=== PATIENT | male | born 1995 | race Caucasian/White ===

== ENCOUNTER 2020-09-29 09:14 | Outpatient (REF) | payer OTHER, SELFPAY | END 2020-09-29 09:15 | disposition home or self-care (01) | LOC: HO.LAB 09:14 | PROVIDERS: Visit Provider Internal Medicine | DX: Z20.828 Contact with and (suspected) exposure to other viral communicable diseases (principal) | CPT/HCPCS: C9803; U0003 ==

== ENCOUNTER 2020-12-07 13:31 | Emergency (ER) | payer OTHER, SELFPAY ==
--- NOTE | ~2020-12-07 | XR_ITS ---
EXAMINATION: RIGHT FOOT AND ANKLE X-RAY CLINICAL INFORMATION: Pain and swelling COMPARISON: None TECHNIQUE: 3 views of the right foot and 3 views of the right ankle FINDINGS: Right ankle: Bone alignment is normal. No fracture or dislocation is seen. The ankle mortise is normal. There is lateral soft tissue swelling. Right foot: Bone alignment is normal. No acute fracture or dislocation is seen. There is question of old trauma to the proximal phalanx of the fifth toe. Joint spaces are normal. Soft tissues are normal. XR/XR foot RT min 3V IMPRESSION: No acute fracture or dislocation seen.
--- NOTE | ~2020-12-07 | XR_ITS ---
EXAMINATION: RIGHT FOOT AND ANKLE X-RAY CLINICAL INFORMATION: Pain and swelling COMPARISON: None TECHNIQUE: 3 views of the right foot and 3 views of the right ankle FINDINGS: Right ankle: Bone alignment is normal. No fracture or dislocation is seen. The ankle mortise is normal. There is lateral soft tissue swelling. Right foot: Bone alignment is normal. No acute fracture or dislocation is seen. There is question of old trauma to the proximal phalanx of the fifth toe. Joint spaces are normal. Soft tissues are normal. XR/XR ankle RT min 3V IMPRESSION: No acute fracture or dislocation seen.
[2020-12-07 13:41] VITALS: BP 142/40; PULSE 61; RESP 18; TEMP 36.5; O2SAT 99; BMI 27.1
--- NOTE | 2020-12-07 15:46 | ED_ITS ---
HPI - Extremity Injury (Lower) General Chief Complaint: Extremity Injury, Lower Stated Complaint: rt foot inj Time Seen by Provider: 12/07/20 14:44 Source: patient and family (Mother) Mode of arrival: ambulatory Limitations: language barrier (Surinamese-speaking) History of Present Illness HPI Narrative: 25-year-old male presenting with his mother who reports that 2 days ago when the patient was walking on the sidewalk he had a twist injury to the right ankle and since then has been having pain to right ankle lateral aspect and the patient's right toes. Denies head injury or loss of consciousness. Denies any other injuries complaints or concerns at this time. MD complaint: ankle injury, foot injury and other (Near fall) Onset (ago): day(s) (2 days ago worse today) Type of Injury: inversion Place: street/outdoors Severity: moderate Relieving factors: nothing Exacerbating factors: weight bearing, movement and palpation Context: walking and other (Near fall) Associated symptoms: swelling and unable to bear weight Other symptoms: none Treatments prior to arrival: other (Has tried [id number] Motrin Tylenol no symptomatic relief) Related Data Previous Rx's Medication Instructions Recorded ibuprofen 800 mg PO Q8H PRN #14 tab 12/07/20 oxycodone-acetaminophen [Percocet] 1 tab PO Q6H PRN #10 tab 12/07/20 Allergies Allergy/AdvReac Type Severity Reaction Status Date / Time orange Allergy Unknown RASH Unverified 06/23/20 17:33 Review of Systems Review of Systems: Constitutional : No changes in activity, No lethargy, No recent prior head injury, No agitation, No increased fussiness ENT/Mouth : No Ear Pain, No Nasal discharge/drainage Eyes: No Eye Pain, No Swelling, No Redness, No Foreign Body, No Vision Changes Cardiovascular : No Chest Pain, No SOB Respiratory : No Cough Gastrointestinal : No Nausea, No Vomiting, No abdominal Pain Genitourinary : No Dysuria, No Urinary Frequency, No Urinary Incontinence, No Urgency, No Flank Pain Musculoskeletal : + joint pain, No neck stiffness, No back pain/injury Skin : No lacerations Neuro : No unsteady gait, No Paresthesias, No Loss of Consciousness, No altered mental status, No Headache Yes all other systems are reviewed and are negative [facility] Past Medical History Attestation statement: The following information was validated with the patient. Social History Social History Smoked in Last 30 Days: No Use of substances other than those prescribed or required for medical reasons: No Advance Directives: No Advance Directives Information Provided: Yes Physical Exam Vital Signs: Vital Signs: Last Vital Signs Temp 97.7 F 12/07/20 13:41 Pulse 61 12/07/20 13:41 Resp 18 12/07/20 13:41 BP 142/40 H 12/07/20 13:41 Pulse Ox 99 12/07/20 13:41 Body Mass Index 27.1 Vital signs have been reviewed as normal and appeared to be correct. Blood pressure normal. Heart rate normal. Respiration rate normal. Temperature normal. Oxygen saturation normal. Appearance: Alert. Oriented x 3. No acute distress. Head: Normal external exam. Normocephalic. Atraumatic. Eyes: PERRLA. EOMI. No nystagmus noted. Conjunctiva and sclera normal. Eyelids normal. Corneal reflex normal. ENT: Hearing normal. Pharynx normal. Uvula midline. tongue midline. Moist mucous membranes. Neck: Normal inspection. Neck supple. FROM. Nontender. CVS: Normal heart rate and rhythm. Heart sound normal. Pulses normal throughout. Respiratory: No respiratory distress. Painless inspiration. Breath sounds normal. No wheezes/rales/rhonchi noted. Chest nontender. Back: No tenderness noted. Full range of motion noted. Skin: Skin warm and dry. Normal skin color. Normal skin turgor. No rashes/lesions/lacerations noted. Extremities: Patient with moderate tenderness to palpation and moderate soft tissue swelling to right ankle lateral aspect No obvious deformities noted. No laxity noted to right ankle. Limited range of motion due to pain and swelling to right ankle although patient attempts dorsiflexion and plantar flexion. Achilles tendon is intact. Negative Burt test. Patient has tenderness to palpation to the 2/3/4 and 5th metatarsals at the proximal aspect with ecchymosis noted. No obvious deformities noted. Patient has full range of motion of the toes. Otherwise all other Extremities exhibit normal range of motion and nontender. Neuro: Oriented X 3. No motor deficit. No sensory deficit. Reflexes normal. Moving all extremities. No focal motor deficits. Speech normal. Limping gait due to right ankle/foot pain. Strength 5/5 throughout. Muscle tone normal throughout. Course Course Course Narrative: 25-year-old male status post twist injury near fall injuring right ankle/right foot 2 days ago. Denies head injury loss of consciousness. Denies actual fall. On exam patient has tenderness to palpation to right lateral aspect of the ankle and ecchymosis noted to the 2/3/4 and 5th toes. No obvious deformities noted. Patient has a limping gait due to pain. X-rays obtained and revealed lateral soft tissue swelling to right ankle otherwise no acute fractures noted. X-ray of right foot revealed questionable proximal phalanx of the 5th toe fracture. Patient denies prior history of trauma to the right foot therefore most likely this is a new fracture. Will place in an Aleksey wrap and given ortho shoe along with crutches and DC home with symptomatic treatment along with orthopedic referral instructions to follow up within the next 1-2 weeks. Patient and mother at bedside understand and agree with plan. Procedures Orthopedic Splinting/Casting Injury #1: Side: right Lower Extremity Injury Location: foot and toe Lower Extremity Immobilizer: post-op shoe and Aleksey wrap Other Orthopedic Equipment: crutches MDM - Extremity Injury (Lower) Medical Records Attestation: I reviewed the patient's medical records. Imaging Data Right ankle/foot: Attestation: I personally reviewed and interpreted this imaging study as follows: Radiologist's impression: FINDINGS: Right ankle: Bone alignment is normal. No fracture or dislocation is seen. The ankle mortise is normal. There is lateral soft tissue swelling. Right foot: Bone alignment is normal. No acute fracture or dislocation is seen. There is question of old trauma to the proximal phalanx of the fifth toe. Joint spaces are normal. Soft tissues are normal. XR/XR foot RT min 3V IMPRESSION: No acute fracture or dislocation seen. Discharge Plan Discharge Clinical Impression: Ankle sprain and strain Fracture, phalanx, foot Qualifiers: Encounter type: initial encounter Toe: lesser toe Fracture type: closed Phalanx: proximal Fracture alignment: nondisplaced Laterality: right Qualified Code(s): S92.514A - Nondisplaced fracture of proximal phalanx of right lesser toe(s), initial encounter for closed fracture Patient Disposition: Home, Self-Care Instructions: Ankle Sprain (ED), Crutch Instructions (ED), Toe Fracture (ED), Post Surgical Shoe (ED) Prescriptions: New ibuprofen 800 mg tablet 800 mg PO Q8H PRN (Reason: pain) Qty: 14 RF: 0 oxycodone-acetaminophen [Percocet] 5-325 mg tablet 1 tab PO Q6H PRN (Reason: pain) Qty: 10 RF: 0 Referrals: Jax Rausch MD [Physician] - 1 week (Call within a week to make a follow- up appointment within the next 1-2 weeks; Llame dentro de annette semana para hacer annette chichi de seguimiento dentro de las pr?ximas 1-2 semanas) Sybil Bhatia MD [Primary Care Provider] - 2 days Stand Alone Forms: Work/School Release Print Language: Surinamese
== END 2020-12-07 16:22 | disposition home or self-care (01) ==
PROVIDERS: Emergency Provider Emergency Medicine; PCP Internal Medicine
DX: S92.514A Nondisplaced fracture of proximal phalanx of right lesser toe(s), initial encounter for closed fracture (principal); S93.401A Sprain of unspecified ligament of right ankle, initial encounter; S96.911A Strain of unspecified muscle and tendon at ankle and foot level, right foot, initial encounter; X50.1XXA Overexertion from prolonged static or awkward postures, initial encounter; Y93.01 Activity, walking, marching and hiking; Y92.480 Sidewalk as the place of occurrence of the external cause; Y99.9 Unspecified external cause status
CPT/HCPCS: 73610; 73630; 99283

== ENCOUNTER 2022-01-12 17:16 | Emergency (ER) | payer OTHER, SELFPAY ==
[2022-01-12 17:20] VITALS: BP 156/74; PULSE 81; RESP 16; TEMP 36.4; O2SAT 98; BMI 30.9
--- NOTE | 2022-01-12 17:51 | ED_ITS ---
HPI - Dental/Oral General Chief complaint: Dental/Oral Stated complaint: dental pain Time Seen by Provider: 01/12/22 17:51 Source: patient Mode of arrival: ambulatory Limitations: no limitations History of Present Illness HPI Narrative: This is a 26-year-old presenting to the emergency department with dental pain s anu yesterday. Patient reached out to his dentist to state that they can not see him until next Saturday and he should be evaluated in the emergency department to rule out infection. Patient tells me that he is having localized pain to 1 of his left front teeth. He tells me he has had this before in is been an infection. He denies fevers, chills, difficulty swallowing, nausea, vomiting, chest pain, shortness of breath, throat pain, gum pain, bleeding in the mouth. He also denies dental trauma. Patient has tried Tylenol with little to no relief. MD Complaint: tooth pain Location: Tooth # (10) Teeth map: 1. patient reports pain to tooth #10 Onset (ago): day(s) (2) Duration: constant Severity: severe Severity scale (1-10): 10 Relieving factors: nothing Exacerbating factors: nothing Context: poor dental care Treatment prior to arrival: none Related Data Previous Rx's Medication Instructions Recorded ibuprofen 800 mg tablet 800 mg PO Q8H PRN #14 tab 12/07/20 oxycodone-acetaminophen 5 mg-325 1 tab PO Q6H PRN #10 tab 12/07/20 mg tablet (Percocet) amoxicillin 875 mg-potassium 1 tab PO BID 7 Days #14 tab 01/12/22 clavulanate 125 mg tablet oxycodone 5 mg tablet 5 mg PO Q8H PRN #6 tab 01/12/22 Allergies Allergy/AdvReac Type Severity Reaction Status Date / Time orange Allergy Unknown RASH Verified 01/12/22 17:22 Review of Systems Review of Systems: Constitutional : No Weight loss, No Fever, No Chills, No Fatigue, No Malaise ENT/Mouth : No sore throat, No Rhinorrhea, + dental pain Eyes: No Eye Pain, No Swelling, No Redness Cardiovascular : No Chest Pain, No SOB, No Dyspnea on Exertion, No Orthopnea, No Edema, No Palpitations Respiratory : No Cough, No Sputum, No Wheezing Gastrointestinal : No Nausea, No Vomiting, No Diarrhea, No Constipation, No abdominal Pain, No Hematochezia, No Melena Musculoskeletal : No joint pain, No Myalgias, No Joint Swelling Skin : No Skin Lesions, No rash Neuro : No Weakness, No Numbness, No Dizziness, No Headache Psych : No Anxiety/Panic, No Depression All other systems reviewed and are negative Yes all other systems are reviewed and are negative [facility] Past Medical History Attestation statement: The following information was validated with the patient. Source: old records reviewed and nursing notes reviewed Medical History (Updated 01/12/22 @ 17:59 by LILLY Law) HTN (hypertension) Social History Social History Advance Directives: No Advance Directives Information Provided: No Physical Exam Vital Signs: Vital Signs: Last Vital Signs Temp 97.5 F 01/12/22 17:20 Pulse 81 01/12/22 17:20 Resp 16 01/12/22 17:20 BP 156/74 H 01/12/22 17:20 Pulse Ox 98 01/12/22 17:20 BMI result Body Mass Index 30.9 VSS Appearance: Alert.? Oriented X3.? No acute distress.? Head: Normocephalic, atraumatic, no step-offs or deformities Eyes: Pupils equal, round and reactive to light.? ENT: Pharynx normal.?+ poor dentition + tooth decay to tooth #10 + pain to palpa tion and percussion overlying tooth 10. No evident dental abscess, no gingivitis. Uvula midline, patient controlling secretions well. Neck: Normal inspection.? Neck supple.? CVS: Normal heart rate and rhythm.? Pulses normal.? Respiratory: No respiratory distress.? Breath sounds normal.? Abdomen: Soft and nontender.? Skin: Skin warm and dry.? Normal skin color.? Normal skin turgor.? Extremities: No lower extremity edema.? No calf ttp. 5/5 strength to bilateral upper and lower extremities Back: No midline tenderness, no C-spine tenderness, full range of motion, no CVA tenderness bilaterally Neuro: Oriented X 3.? No motor deficit.? No sensory deficit. CN 2-12 intact Course Reevaluation(s) Reevaluation #1: Discussed discharge with patient. Patient will follow-up with his dentist. Patient reports 10/10 pain therefore a narcotic has been sent to his pharmacy. I attest that I have reviewed patients [place], and at the time prescribing the patient a controlled substance is appropriate based off of patients diagnosis and treatment plan. Comfortable with discharge home with PCP and dental follow- up. Time: 17:57 MDM - Dental/Oral MDM Narrative Medical decision making narrative: 1755 26 yo m presents w/ dental pain X2 days PE significant for poor dentition, tooth decay to tooth #10. Pain to palpation and percussion overlying tooth 10. No evident dental abscess, no gingivitis. Uvula midline, patient controlling secretions well. Regular rate and rhythm. Lungs clear. Abdomen soft nontender nondistended. At vital signs stable. No signs of dental abscess, epiglottitis or peritonsillar abscess. Plan treat patient with oral antibiotics. Advised him to follow-up with his dentist as soon as possible. Given worrisome signs and symptoms and when to return. Medical Records Attestation: I reviewed the patient's medical records. Lab Data Attestation: I reviewed the patient's lab results. Critical Care Time Critical Care Time Critical Care Time: No Discharge Plan Discharge Clinical Impression: Pain, dental Patient Disposition: Home, Self-Care Instructions: Toothache (ED) Additional Instructions: Take your medications as prescribed. If you were prescribed antibiotics today, it is important that you take your medication to their entirety, do not skip any doses, do not finish them early. Follow-up with your primary care provider this week. Follow-up with a dentist as soon as possible. Return to the emergency department with new or worsening symptoms. Such as fevers, chills, chest pain, shortness of breath, nausea, vomiting, dizziness, headache, vision changes, lethargy, difficulty swallowing, inability to control secretions, changes in voice, worsening pain or swelling. In case of emergency call 911 Prescriptions: New amoxicillin-pot clavulanate 875-125 mg tablet 1 tab PO BID 7 Days Qty: 14 0RF oxycodone 5 mg tablet 5 mg PO Q8H PRN (Reason: pain) Qty: 6 0RF Rx Instructions: Patient can partially filled this prescription upon request No Action ibuprofen 800 mg tablet 800 mg PO Q8H PRN (Reason: pain) Qty: 14 0RF oxycodone-acetaminophen [Percocet] 5-325 mg tablet 1 tab PO Q6H PRN (Reason: pain) Qty: 10 0RF Referrals: Sybil Bhatia MD [Primary Care Provider] - 2 days Stand Alone Forms: Work/School Release
[2022-01-12] MEDS: oxyCODONE HCl Immed Release 5 MG TABLET PO (18:30)
== END 2022-01-12 18:32 | disposition home or self-care (01) ==
LOC: HO.ED 18:00
PROVIDERS: Emergency Provider Emergency Medicine; PCP Internal Medicine
DX: K08.89 Other specified disorders of teeth and supporting structures (principal); Z79.899 Other long term (current) drug therapy
CPT/HCPCS: 99283; 99284

== ENCOUNTER 2024-11-20 11:56 | Emergency (ER) | payer OTHER, SELFPAY ==
[2024-11-20 12:12] VITALS: BP 152/84; PULSE 84; RESP 16; TEMP 38.1; O2SAT 97; BMI 31.7
[2024-11-20 13:59] LABS: Influenza A PCR NEGATIVE (Negative); Influenza B PCR POSITIVE (Negative); Resp Syncy Virus RNA Qual PCR NEGATIVE (Negative); SARS COV2 PCR INHOUSE NEGATIVE (Negative)
--- NOTE | 2024-11-20 14:39 | ED.GENADULT ---
HPI - General Adult General Chief complaint: General Medical Stated complaint: flu Symptoms Time Seen by Provider: 11/20/24 14:39 Source: patient Mode of arrival: ambulatory Limitations: no limitations History of Present Illness ED Provider: Chastity Person PA-C HPI narrative: Patient is a 29 year old assigned male at with a history of HTN and depression presenting to the emergency department today with a headache, congestion, and fatigue. Patient states that over the last 2 days he has been having a headache, congestion, and fatigue. Patient denies any dizziness, lightheadedness, abdominal pain, nausea, vomiting, fever, chills, blurry vision, double vision, loss of vision, chest pain, difficulty breathing, shortness of breath, back pain, night sweats, pain with urination, increased urinary frequency, increased urinary urgency, blood in his urine or stool, syncope or a near syncopal episode, recent trauma or falls, bowel incontinence, bladder incontinence, or any other complaints at this time. Onset (ago): day(s) (2) Relieving factors: none Exacerbating factors: none Associated symptoms: headaches Treatments prior to arrival: none Related Data Previous Rx's ?Medication ?Instructions ?Recorded ibuprofen 800 mg tablet 800 mg PO Q8H PRN pain #14 tabs 12/07/20 oxycodone-acetaminophen 5 mg-325 1 tab PO Q6H PRN pain #10 tabs 12/07/20 mg tablet (Percocet) amoxicillin 875 mg-potassium 1 tab PO BID 7 days #14 tabs 01/12/22 clavulanate 125 mg tablet oxycodone 5 mg tablet 5 mg PO Q8H PRN pain #6 tabs 01/12/22 Allergies Allergy/AdvReac Type Severity Reaction Status Date / Time orange Allergy Unknown RASH Verified 11/20/24 12:13 Review of Systems Constitutional: Constitutional: Reports no additional constitutional complaints, Denies chills, Reports fatigue, Denies fever(s), Reports headache(s) and Denies night sweats Eyes: Eyes: Reports no additional eye complaints, Denies blurry vision, Denies change in vision, Denies diplopia, Denies eye discharge, Denies loss of vision and Denies eye pain ENT: Denies dizziness, Reports headache(s) and Reports nasal congestion Cardiovascular: Cardiovascular: Reports no additional cardiovascular complaints, Denies chest pain, Denies lightheadedness, Denies Loss of Consciousness and Denies dyspnea Respiratory: Respiratory: Reports no additional respiratory complaints and Denies dyspnea Gastrointestinal: Gastrointestinal: Reports no additional gastrointestinal complaints, Denies abdominal pain, Denies melena, Denies hematochezia, Denies change in bowel habits and Denies change in stool character Genitourinary: Genitourinary: Reports no additional male genitourinary complaints, Denies hematuria, Denies oliguria, Denies difficulty urinating, Denies dysuria, Denies urinary frequency, Denies urinary hesitancy, Denies urinary incontinence and Denies urinary urgency Musculoskeletal: Musculoskeletal: Reports no additional musculoskeletal complaints, Denies numbness and Denies tingling Neurologic: Denies dizziness, Reports headache(s), Denies loss of vision, Denies numbness and Denies tingling Psychiatric: Psychiatric: Reports no additional psychiatric complaints Endocrine: Endocrine: Reports no additional endocrine complaints and Reports fatigue Hematologic/Lymphatic: Hematologic/Lymphatic: Reports no additional hematologic/lymphatic complaints Allergic/Immunologic: Allergic/Immunologic: Reports no additional allergic/immunologic complaints PMFSH Past Medical History Attestation statement: The following information was validated with the patient. Source: old records reviewed and nursing notes reviewed Medical History HTN (hypertension) Social History Social History Advance Directives: No Advance Directives Information Provided: Yes Physical Exam ED Vital Signs: Vital Signs - 24 hr 11/20/24 12:12 Temperature 100.5 F H Pulse Rate 84 Respiratory Rate 16 Blood Pressure 152/84 H Pulse Oximetry 97 Oxygen Delivery Method Room Air BMI result Body Mass Index 31.7 Const General: cooperative, no acute distress, alert and awake Nutritional Appearance: well nourished Orientation/consciousness: patient oriented x3 Limitations: no limitations HENMT Head: Yes normal to inspection and Yes atraumatic Ears: hearing grossly normal bilaterally and external ears normal General nose exam: Normal external nose present, no nasal discharge noted and no epistaxis Face and sinus: Yes normal facial exam, No abrasion and No laceration Mouth: Normal oral and palatal mucosa present, no drooling and no muffled voice Eyes General: appearance normal, both eyes and all related structures Periorbital: periorbital findings normal Eyelids: Yes eyelids normal Conjunctivae: conjunctivae normal Pupils: Equal, round and reactive pupils present EOM: EOMs intact bilaterally Neck Neck: Yes normal visual inspection, Yes full ROM and Yes no lymphadenopathy Chest Chest palpation & inspection: normal inspection of the chest Resp Effort & Inspection: normal respiratory effort and able to speak in complete sentences GI Inspection: Yes normal to inspection Neuro General: patient oriented x3, moves all extremities and CN's II-XI intact bilaterally Cranial nerves: Yes Equal, round and reactive pupils present Cognition (Neuro): normal cognition Extrem General: Yes normal to inspection, Yes full ROM and Yes capillary refill normal Psych Appearance: grossly normal Mental Status: mental status grossly normal Affect: normal affect Attitude: cooperative Thought process: Normal thought process present Thought content: Normal thought content present Insight: Good insight present (Psych) Medical Decision Making Medical Decision Making [facility] Narrative: Patient is a 29 year old assigned male at with a history of HTN and depression presenting to the emergency department today with a headache, congestion, and fatigue. Patient's physical exam was unremarkable. Patient's influenza test was positive. I explained my physical exam findings as well as all test results to the patient. I answered all questions asked by the patient. I stressed the importance of the patient taking his medication as directed (either prescribed or as the over the counter packaging recommends). I stressed the importance of the patient following up with his primary care provider. I stressed the importance of the patient returning to the emergency department immediately if his symptoms were to worsen or if he were to develop any dizziness, shortness of breath, difficulty breathing, chest pain, blurry vision, loss of vision, nausea, vomiting, abdominal pain, fever, chills, back pain, or any other complaints. Patient verbalized agreement and understanding with this treatment plan and discharge. Differential Diagnosis Differential Diagnoses: The differential diagnosis associated with the presentation includes Headache Nasal congestion Fatigue Influenza RSV COVID-19 Admission/Observation Consideration of admission/observation: Escalation of care including admission/observation considered Patient would have been admitted to the hospital had his work up had any findings where hospital admission was appropriate and his clinical presentation warranted hospital admission. Lab Data [facility] Lab Attestation statement: I reviewed the patient's lab results. My interpretation of these results are in the [facility] Rationale portion of this note. Labs: Lab Results 11/20/24 Range/Units 12:54 Influenza Type A (PCR) NEGATIVE (Negative) Influenza Type B (PCR) POSITIVE A (Negative) RSV RNA Qual (PCR) NEGATIVE (Negative) SARS-CoV-2 RNA (RT-PCR) NEGATIVE (Negative) Discharge Plan Discharge Clinical Impression: Influenza Patient Disposition: Home, Self-Care Instructions: Influenza (DC) Additional Instructions: Follow up with your primary care provider. Return to the emergency department immediately if your symptoms worsen or if you develop any dizziness, shortness of breath, difficulty breathing, chest pain, blurry vision, loss of vision, nausea, vomiting, abdominal pain, fever, chills, back pain, or any other complaints. Prescriptions: No Action ibuprofen 800 mg tablet 800 mg PO Q8H PRN (Reason: pain) Qty: 14 0RF oxycodone-acetaminophen [Percocet] 5-325 mg tablet 1 tab PO Q6H PRN (Reason: pain) Qty: 10 0RF amoxicillin-pot clavulanate 875-125 mg tablet 1 tab PO BID 7 Days Qty: 14 0RF oxycodone 5 mg tablet 5 mg PO Q8H PRN (Reason: pain) Qty: 6 0RF Rx Instructions: Patient can partially filled this prescription upon request Referrals: Sybil Bhatia MD [Primary Care Provider] - Print Language: Togolese
--- OUTSIDE RECORDS SUMMARY | 2024-11-20 14:51 | XMS_ITS | Clinical Summary ---
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 Active Melatonin Maximum Strength 5 MG tablet TAKE 2 TABLETS BY MOUTH EVERY DAY AT BEDTIME Active risperiDONE (RisperDAL) 1 MG tablet Take 1 mg by mouth at bedtime. Active Active Problems No known active problems Encounters Date Type Department Care Team Description 08/27/2024 9:00 AM EST Office Visit [facility] [address] [place] [address] Cyril Esquivel Dental calculus (Primary Dx) from Last 3 Months Social History Tobacco Use Types Packs/Day Years Used Date Smoking Tobacco: Never Passive Smoke Exposure: Never Smokeless Tobacco: Never Tobacco Cessation:Counseling Given: Not Answered Sex and Gender Information Value Date Recorded Sex Assigned at Male 08/06/2022 10:19 AM EDT Legal Sex Male 10:19 AM EDT Gender Identity Male 08/06/2022 10:19 AM EDT Sexual Orientation Straight 08/06/2022 10 :19 AM EDT Last Filed Vital Signs Vital Sign Reading Time Taken Comments Blood Pressure 132/78 08/27/2024 9:10 AM EST Pulse 65 08/27/2024 9:10 AM EST Temperature - - Respiratory Rate - - Oxygen Saturation - - Inhaled Oxygen Concentration - - Weight - - Height - - Body Mass Index - - Plan of Treatment Upcoming Encounters Date Type Department Care Team ([facility] st Contact Info) Description 12/17/2024 10:00 AM EDT Office Visit [facility] [address] [place] [address] Jose Ibarra DDS [address] [place] [address] Health Maintenance Due Date Last Done Comments Depression Screening 1993 HIV Screening 1993 Lipid Panel 1993 SDOH Screening 1993 Alcohol/Substance Use Screening 2005 Family Planning (PISQ) 2008 Hepatitis C Screening 2011 DTaP/Tdap/Td Vaccines (7 - Td or Tdap) 05/05/2020 05/05/2010, 11/29/2005, 10/19/1997, Additional history exists COVID-19 Vaccine ( season) 2024 07/07/2021, 06/16/2021 Influenza Vaccine (#1) 2024 5, 09/15/2013, 09/11/2012, Additional history exists Dental Oral Exam 02/25/2025 08/27/2024, , 07/09/2017, Additional history exists Dental Prophylaxis 02/25/2025 08/27/2024, 1 , 07/09/2012 Tobacco Screening 08/27/2025 08/27/2024 Dental X-Ray: Bitewings 08/28/2025 08/27/20 24, 06/01/2021, 03/04/2019, Additional history exists Dental X-Ray: Full Mouth 08/28/2027 024, 06/01/2021, 04/30/2016, Additional history exists Zoster Vaccines (1 of 2) 2043 RSV Patients and Patients Aged 60 years or older (1 - 1-dose 75+ series) 2068 HIB Vaccines Completed 03/13/1995, 04/1995, 04/02/1994, Additional history exists Hepatitis B Vaccines Completed 04/23/1995, 03/14/1994, 01/23/1994 IPV Vaccines Completed 10/19/1997, 04/1995, 04/02/1994, Additional history exists Meningococcal Vaccine Aged Out 03/12/2008 No balaji mirian eligible based on patient's age to complete this topic Hepatitis A Vaccines Completed 09/10/2011, 05/05/20 10 HPV Vaccines Completed 09/11/2012, 02/2011, 05/05/2010 Pneumococcal Vaccine: Pediatrics (0 to 5 Years) and At-Risk Patients (6 to 49) Years) Aged Out No longer eligible based on patient's age to complete this topic RSV under 20 months Aged Out No longe r eligible based on patient's age to complete this topic Rotavirus Vaccines Aged Out No longer eligible based on patient's age to complete this topic Procedures Procedure Name Priority Date/Time Associated Diagnosis Comments COMPREHENSIVE ORAL EVALUATION - NEW OR ESTABLISHED PATIENT Routine 08/27/2024 9:00 AM EST ORAL HYGIENE INSTRUCTIONS Routine 2023 9:00 AM EST INTRAORAL - COMPLETE SERIES OF RADIOGRAPHIC IMAGES Routine 08/27/2024 9:00 AM EST PROPHYLAXIS - ADULT Routine 08/27/2024 9 :00 AM EST CASE PRESENTATION, DETAILED AND EXTENSIVE TREATMENT PLANNING Routine 08/27/2024 9:00 AM EST 20 PFM CROWN Routine 08/27/2024 12:00 AM EST 11 PFM CROWN Routine 08/27/2024 12:00 AM EST 11 ROOT CANAL Routine 08/27/2024 12:00 AM EST 22 PFM CROWN Routine 08/27/2024 12:00 AM EST 20 PFM CROWN Routine 08/27/2024 12:00 AM EST 4 PFM CROWN Routine 08/27/2024 12:00 AM EST from Last 3 Months Insurance [facility] MED[place] STAND ADULT
--- OUTSIDE RECORDS SUMMARY | 2024-11-20 14:51 | XMS_ITS | Clinical Summary ---
Author Organization [facility] Address [address] 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 Phone Sybil Bhatia MD Primary Care Provider [phone] Medications lamoTRIgine (LaMICtal) 200 MG tablet Take 200 mg by mouth 1 (one) time each day 05/19/2021 Active Melatonin 5 MG tablet Take 2 tablets by mouth every night 05/19/2021 Active risperiDONE (RisperDAL) 1 MG tablet Take 1 tablet by mouth 1 (one) time each day 05/17/2015 Active lisinopril 40 MG tablet Take 1 tablet (40 mg total) by mouth 1 (one) time each day 90 tablet 07/20/2021 Active metoprolol succinate XL (TOPROL XL) 25 MG 24 hr tablet Take 1 tablet (25 mg total) by mouth 1 (one) time each day 90 tablet 2 07/20/2021 Active Active Problems Problem Noted Date Diagnosed Date Essential hypertension 06/05/2021 Vitamin D deficiency 06/05/2021 Immunizations Name Administration Dates Next Due Influenza Split High Dose Preservative Free IM 0 06/15/2015 Family History Medical History Relation Comments Hypertension Mother Relation Status Comments Father Mother Alive Social History Tobacco Use Types Packs/Day Years Used Date Smoking Tobacco: Never Alcohol Use Standard Drinks/Week Comments No 0 (1 standard drink = 0.6 oz pur e alcohol) Sex and Gender Information Value Date Recorded Sex Assigned at Not on file Legal Sex Male 5:16 PM EST Gender Identity Not on file Sexual Orientation Not on file Last Filed Vital Signs Vital Sign Reading Time Taken Comments Blood Pressure 128/80 11/02/2020 12:00 PM EST Pulse 90 11/02/2020 12:00 PM EST Temperature - - Respiratory Rate - - Oxygen Saturation - - Inhaled Oxygen Concentration - - Weight 102 kg (225 lb) 11/02/2020 12:00 PM EST Height 188 cm (6' 2 ) 11/02/2020 12:00 PM EST Body Mass Index 28.89 11/02/2020 12:00 PM EST Plan of Treatment Health Maintenance Due Date Last Done Comments Influenza Vaccine (#1) 2024 06/15/2015 Hepatitis B Vaccine Completed 04/23/1995, 03/14/1994, 01/23/1994 Pneumococcal Vaccine: Pediatrics (0 to 5 Years) and At-Risk Patients (6 to 64 Years) Aged Out No longer eligible b ased on patient's age to complete this topic Insurance MEDICAID MEDICAID Care Teams Reel And Rewinder Operator Relationship Specialty Start Date End Date Sybil Bhatia MD [facility] - General 10/17/20
--- NOTE | 2024-11-20 14:55 | PC.NURSE ---
pt was seen and discharged by provider
== END 2024-11-20 14:56 | disposition home or self-care (01) ==
PROVIDERS: Physician Assistant; Emergency Provider Emergency Medicine; PCP Internal Medicine
DX: J10.1 Influenza due to other identified influenza virus with other respiratory manifestations (principal); R51.9 Headache, unspecified; R09.89 Other specified symptoms and signs involving the circulatory and respiratory systems; R53.83 Other fatigue; Z03.818 Encounter for observation for suspected exposure to other biological agents ruled out
CPT/HCPCS: 0241U; 99281; 99283

== ENCOUNTER 2024-12-26 09:13 | Emergency (ER) | payer OTHER, SELFPAY ==
--- NOTE | ~2024-12-26 | XR_ITS ---
CLINICAL HISTORY: low back pain post lifting 3 views lumbar spine Comparison: None Findings: Normal vertebral body alignment. No acute fractures or dislocation. No significant degenerative change. Moderate stool in the proximal colon. IMPRESSION: No acute findings. This document has been electronically signed by: Alice Trejo MD on 12/26/2024 09:54:45
[2024-12-26 09:22] VITALS: BP 149/38; PULSE 75; RESP 16; TEMP 36.6; O2SAT 98; BMI 33.4
[2024-12-26 11:26] VITALS: BP 156/52; PULSE 75; RESP 16; TEMP 36.6; O2SAT 98
--- NOTE | 2024-12-26 11:26 | ED_ITS ---
HPI - Back Pain/Injury General Chief Complaint: Back Pain/Injury Stated Complaint: lower back pain Time Seen by Provider: 12/26/24 11:44 Source: patient Mode of arrival: ambulatory Limitations: no limitations History of Present Illness ED Provider: Trish Gunderson NP HPI Narrative: patient is a 29-year-old male who presents emergency department for evaluation. He reports that he awoke this morning with diffuse lower back pain. He does admit that yesterday evening he was at the gym, has been lifting approximately 400lbs which he has done previously. He states that the pain at times radiates to the bilateral lower legs posteriorly. Denies fevers, chills, burning with micturition, urinary frequency/urgency/hesitancy, bladder or bowel dysfunction, numbness or tingling of the perineum or bilateral legs. Denies any recent surgical procedures, any known immune compromising conditions, personal history of cancer, or IV drug usage. MD elicited complaint: back pain Related Data Previous Rx's ?Medication ?Instructions ?Recorded ibuprofen 800 mg tablet 800 mg PO Q8H PRN pain #14 tabs 12/07/20 oxycodone-acetaminophen 5 mg-325 1 tab PO Q6H PRN pain #10 tabs 12/07/20 mg tablet (Percocet) amoxicillin 875 mg-potassium 1 tab PO BID 7 days #14 tabs 01/12/22 clavulanate 125 mg tablet oxycodone 5 mg tablet 5 mg PO Q8H PRN pain #6 tabs 01/12/22 cyclobenzaprine 5 mg tablet 5 mg PO TID PRN muscle spasm #14 12/26/24 tabs ibuprofen 600 mg tablet 600 mg PO Q8H PRN pain #30 tabs 12/26/24 lidocaine 5 % topical patch 1 patch topical DAILY #15 ea 12/26/24 Allergies Allergy/AdvReac Type Severity Reaction Status Date / Time orange Allergy Unknown RASH Verified 12/26/24 09:25 Review of Systems Review of Systems: Yes all other systems are reviewed and are negative PMFSH Past Medical History Attestation statement: The following information was validated with the patient. Source: old records reviewed Medical History HTN (hypertension) Social History Social History Advance Directives: No Advance Directives Information Provided: No Physical Exam Vital Signs: Vital Signs: Last Vital Signs Temp 97.8 F 12/26/24 11:26 Pulse 75 12/26/24 11:26 Resp 16 12/26/24 11:26 BP 156/52 H 12/26/24 11:26 Pulse Ox 98 12/26/24 11:26 O2 Del Method Room Air 12/26/24 11:26 BMI result Body Mass Index 33.4 Appearance: Alert.?Oriented to person, place and time. No acute distress.?Normal affect.?? CVS: Heart sounds normal. Normal heart rate and rhythm.? Pulses normal; bilateral radial pulses 2+, bilateral posterior tibial/dorsalis pedis pulses 2+.? Respiratory: No respiratory distress.? Lung sounds clear to auscultation bilaterally?? Abdomen: Soft and non-tender. Normoactive bowel sounds. Skin: Skin warm and dry.? Normal skin color.? ?? Extremities: No lower extremity edema.? No calf ttp? Back: + moderate bilateral paraspinal muscular tenderness from lumbar region to coccyx. No CVA tenderness. No midline lumbar spinal tenderness, step-off's, or deformity. Full ROM intact in bilateral lower extremities. Straight leg test negative on right; Straight leg test negative on left. No rashes, lesions, areas of induration or fluctuance, or signs of infection noted., Neuro: Moves all extremities spontaneously. 5/5 strength in hip extension/flexion, abduction, adduction. Sensation to light touch intact bilaterally. Patellar and Achilles reflex 2+ bilaterally. No ataxia, gait normal and steady. No focal neuro deficits. Medical Decision Making Medical Decision Making MDM Narrative: patient is a 29-year-old male who presents emergency department for evaluation of back pain as per HPI. Onset this morning after heavy living yesterday night. On examination, pain is most consistent with lumbar strain, although cannot completely exclude herniated disc, I reviewed this with patient t and discussed that this would likely not be visible with lumbar spine XR. XR was obtained prior to my assumption of care, there is no acute osseous abnormality.. On neurological exam there are no deficits. No acute bony tenderness, unlikely to be spinal fracture. Exam findings not consistent with cauda equina syndrome. No recent fevers, unintentional weight loss, history of IVDA, high-risk past medical history, immunosuppression, recent surgery or lumbar puncture to suggest spinal infection, epidural abscess, malignancy. Not consistent with AAA or dissection. No genitourinary symptoms, afebrile, no CVA tenderness, unlikely urinary tract infection, pyelonephritis, renal colic. No history of nephrolithiasis/ureteral calculi. No indication for emergent MRI. Plan for discharge home with Conservative treatment, acetaminophen/ ibuprofen, Lidoderm patches, and a short prescription for muscle relaxant to use as needed and follow-up with primary care provider, and patient agreed with plan. Differential Diagnosis Differential Diagnoses: The differential diagnosis associated with the presentation includes ( see narrative above) Admission/Observation Consideration of admission/observation: Escalation of care including admission/observation considered ( see narrative above) Independent Interpretation I performed an independent interpretation of an: Plain X-Ray ( no acute lumbar fracture) Radiology Impression Discussion of test interpretation with radiology: I have reviewed the radiologist's reading. Radiologist Impression: 3 views lumbar spine Comparison: None Findings: Normal vertebral body alignment. No acute fractures or dislocation. No significant degenerative change. Moderate stool in the proximal colon. IMPRESSION: No acute findings. Independent Historian Clinical information obtained from an independent historian. History obtained from or confirmed by: Parent External Record Review External record reviewed: Outpatient record Prescription Management I considered prescription management with: Pain Medication Discharge Plan Discharge Clinical Impression: Strain of lumbar region Patient Disposition: Home, Self-Care Instructions: Low Back Strain (ED), Acute Low Back Pain (ED), R.I.C.E. Treatment (ED) Additional Instructions: You can take ibuprofen 200 mg, 3 tablets (600mg) every 6-8 hours as needed for pain, in addition to Tylenol 500 mg, 2 tablets (1,000mg) every 4-6 hours as needed for pain, but not to exceed 3 doses daily (3,000mg).? Apply lidoderm patch to the area of pain, Leave on for 12 hours maximum and then remove for 12 hours. Over the next 2 days apply ice for 10-15 minutes 4-6 times daily followed by heat. As discussed, is important to rest over the next week, do not engage in further heavy lifting. For pain that is unrelieved by the above I have sent a prescription for a muscle relaxant to your pharmacy. Cyclobenzaprine/Flexeril. This medication may make you drowsy. You should not drive, drink alcohol, or work while taking this medication. Prescriptions: New ibuprofen 600 mg tablet 600 mg PO Q8H PRN (Reason: pain) Qty: 30 0RF lidocaine 5 % adhesive patch,medicated 1 patch topical DAILY Qty: 15 0RF Rx Instructions: leave on most painful area for up to 12 hrs cyclobenzaprine 5 mg tablet 5 mg PO TID PRN (Reason: muscle spasm) Qty: 14 0RF No Action ibuprofen 800 mg tablet 800 mg PO Q8H PRN (Reason: pain) Qty: 14 0RF oxycodone-acetaminophen [Percocet] 5-325 mg tablet 1 tab PO Q6H PRN (Reason: pain) Qty: 10 0RF amoxicillin-pot clavulanate 875-125 mg tablet 1 tab PO BID 7 Days Qty: 14 0RF oxycodone 5 mg tablet 5 mg PO Q8H PRN (Reason: pain) Qty: 6 0RF Rx Instructions: Patient can partially filled this prescription upon request Referrals: Physician,Unknown J [Physician] - Print Language: Armenian
[2024-12-26 11:48] VITALS: BP 156/52; PULSE 75; RESP 16; TEMP 36.6; O2SAT 98
== END 2024-12-26 11:48 | disposition home or self-care (01) ==
PROVIDERS: Emergency Provider Emergency Medicine; PCP Internal Medicine
DX: S39.012A Strain of muscle, fascia and tendon of lower back, initial encounter (principal); X50.1XXA Overexertion from prolonged static or awkward postures, initial encounter; M54.50 Low back pain, unspecified; Y93.84 Activity, sleeping; Y92.013 Bedroom of single-family (private) house as the place of occurrence of the external cause; Y99.9 Unspecified external cause status
CPT/HCPCS: 72100; 99282; 99283

== ENCOUNTER → 2024-12-26 09:30 | Outpatient (BNV) | payer OTHER, SELFPAY | PROVIDERS: Visit Provider Radiology Diagnostic Radiology | DX: M54.50 Low back pain, unspecified (principal) | CPT/HCPCS: 72100 ==

== ENCOUNTER → 2025-04-29 11:58 | Outpatient (BNVA) | payer SELFPAY | PROVIDERS: PCP Internal Medicine; Visit Provider Physician Assistant Medical | DX: Z02.1 Encounter for pre-employment examination (principal) ==